=== PATIENT | male | born 1960 | race Caucasian/White ===

== ENCOUNTER → 2025-01-07 | Outpatient (CLI) | payer MEDICAID, SELFPAY ==
--- NOTE | 2025-01-07 15:30 | XR_ITS ---
Examination: MRI abdomen with intravenous contrast. MRI abdomen without intravenous contrast. Date and time of exam: January 07, 2025 1543 hours INDICATIONS: Epigastric pain and abdominal pain and weight loss beginning 4 years ago Technique: Multiple axial, sagittal and coronal sections of the abdomen obtained. Transverse images, TR 6020, TE 107. T1 weighted transverse images, TR 582, TE 9.5. T2-weighted sagittal images, TR 4000, TE 105. T2-weighted sagittal images, TR 4000, TE 5. Coronal images, TR 4210, TE 107. Axial and coronal images are obtained post 20 cc intravenous injection, gadolinium. Findings: No focal liver lesions Absent gallbladder Common bile duct 4 mm no common hepatic or common bile duct stones Pancreatic atrophy, no pancreatic mass or dilated pancreatic duct No hydronephrosis Aorta normal size No ascites Postcontrast images demonstrate no abnormal enhancing liver splenic or renal lesions No adenopathy IMPRESSION: Absent gallbladder Normal common hepatic common bile duct No abnormal enhancing liver splenic or renal lesions
== END | disposition home or self-care (01) ==
LOC: SMRI 15:12
PROVIDERS: PCP Family Medicine; Referring Provider Internal Medicine Gastroenterology; Visit Provider Internal Medicine Gastroenterology
DX: R10.11 Right upper quadrant pain (principal); Z90.49 Acquired absence of other specified parts of digestive tract
CPT/HCPCS: 74183; A9579